=== PATIENT | female | born 1970 | race Caucasian/White ===

== ENCOUNTER 2017-08-16 14:33 | Emergency (ER) | payer OTHER ==
[~2017-08-16] VITALS: Ht 165.1 cm; Wt 85.9 kg
[~2017-08-16 14:33] MED LIST: ACET1TAB84 PO; IBUP-1050 PO
[2017-08-16 14:45] VITALS: TEMP 36.7; Ht 165.1 cm; Wt 85.9 kg
--- NOTE | 2017-08-16 15:47 | DIAGNOSTIC IMAGING REPORT ---
CHEST ONE VIEW PORTABLE CLINICAL HISTORY: Chest pain. COMPARISON STUDY: No previous studies for comparison. FINDINGS: Lung volumes are normal. No pneumothorax or pleural effusion is noted. No consolidation is identified. Cardiac size is normal. Mediastinal contours are normal. Mild nonspecific interstitial thickening is noted. IMPRESSION: 1. No consolidation. 2. Mild nonspecific interstitial thickening. Electronically signed by: Gonzalo Xavier M.D. 08/16/2017 3:45 PM Dictated Date/Time: 08/16/2017 3:44 PM
[2017-08-16 15:54] VITALS: O2SAT 100
[2017-08-16 16:01] LABS: BASO % 0.5 %; BASO ABS # 0.06 K/uL (0-0.2); EOS % 2.2 %; EOS ABS # 0.27 K/uL (0-0.5); HEMATOCRIT 38.2 % (37-47); IG# 0.02 K/uL (0.00-0.02); LYMPH % 25.1 %; LYMPH ABS # 3.08 K/uL (1.2-3.4); MEAN CELL VOLUME 89.7 fL (80-100); MEAN CORPUSCULAR HEMOGLOBIN 30.5 pg (25-34); MEAN PLATELET VOLUME 10.4 fL (7.4-10.4); MONO % 6.4 %; MONO ABS # 0.79 K/uL (0.11-0.59); NEUT % 65.6 %; NEUT ABS # 8.05 K/uL (1.4-6.5); PLATELET COUNT 233 K/uL (130-400); RED CELL DISTRIBUTION WIDTH CV 13.8 % (11.5-14.5); RED CELL DISTRIBUTION WIDTH SD 45.4 fL (36.4-46.3); WHITE BLOOD COUNT 12.27 K/uL (4.8-10.8)
[2017-08-16 16:10] LABS: PTT PATIENT 27.6 SECONDS (21.0-31.0)
[2017-08-16 16:18] LABS: ALBUMIN 3.9 gm/dl (3.4-5.0); ALT/SGPT 19 U/L (12-78); AST/SGOT 14 U/L (15-37); BLOOD UREA NITROGEN 14 mg/dl (7-18); CALCIUM 8.7 mg/dl (8.5-10.1); CARBON DIOXIDE 27 mmol/L (21-32); CREATININE 0.69 mg/dl (0.60-1.20); GLUCOSE 81 mg/dl (70-99); LIPASE 98 U/L (73-393); POTASSIUM 3.8 mmol/L (3.5-5.1); SODIUM 138 mmol/L (136-145)
[2017-08-16 16:23] LABS: ALKALINE PHOSPHATASE 62 U/L (45-117); CKMB 2.4 ng/ml (0.5-3.6); TOTAL PROTEIN 7.5 gm/dl (6.4-8.2)
[2017-08-16] MEDS ORDERED: VENL1CAP92 PO (16:29)
[2017-08-16 19:42] VITALS: BP 124/71; PULSE 62; O2SAT 98
--- NOTE | 2017-08-16 23:27 | EMERGENCY ROOM VISIT NOTE ---
History Report prepared by Barrett: Reshma Ambrocio Under the Supervision of: Dr. Bhavesh Zuñiga M.D. First contact with patient: 15:18 Chief Complaint: CHEST PAIN Stated Complaint: CHEST PAIN Nursing Triage Summary: Patient c/o intermittent chest pain for 3 days. Increased belching, denies SOB. History of Present Illness The patient is a 46 year old female who presents to the Emergency Room with complaints of intermittent left sided chest pain beginning 3 days ago. The patient reports she called her PCP who was unable to see her today so he referred her to come to the ED. She denies any radiation of pain. The patient describes her pain as a soreness. She rates her pain as a 5/10 at its worst. Presently, she rates her pain as a 3/10. She denies any modifying or worsening factors to her chest pain. The patient's most current episode of chest pain has lasted for about 9 hours. The patient reports increased belching. The patient reports a family history of cardiac stents and strokes. The patient has a history of tubal ligation and vein stripping. The patient is a smoker. Pt denies LOC, headache, fevers, chills, diaphoresis, visual changes, neck pain, tearing pain radiating to the back, personal history or family history of aneurysm or pulmonary embolism, uncontrolled hypertension, breathing difficulties, leg swelling, coagulation abnormalities, prolonged travel, recent surgery or immobilization, nausea, vomiting, abdominal pain, shortness of breath , melena, hematochezia, urinary symptoms, numbness, weakness, lymphadenopathy, rash, or other complaints. Source of History: patient Onset: 3 days ago Position: chest (left) Symptom Intensity: 3/10 Quality: other (soreness) Timing: intermittent Modifying Factors (Worsening): other (none) Modifying Factors (Relieving): other (none) Associated Symptoms: + chest pain, No fevers, No chills, No headache, No cough, No neck pain, No SOB, No nausea, No vomiting, No abdominal pain, No back pain, No diarrhea, No urinary symptoms, No weakness, No numbness Review of Systems See HPI for pertinent positives and negatives. A total of ten systems were reviewed and were otherwise negative. Past Medical & Surgical Medical Problems: (1) Deep vein stripping (2) Depression (3) Heart murmur Surgical Problems: (1) History of tubal ligation (2) S/P tubal ligation Family History FH: stroke Stent Social History Smoking Status: Current Every Day Smoker Marital Status: Housing Status: lives with significant other Occupation Status: employed Current/Historical Medications Scheduled Venlafaxine Hcl (Effexor Xr), 1 CAP PO BID Scheduled PRN Acetaminophen (Tylenol Arthritis Ext Rel), 2 TABS PO Q8H PRN for Pain Ibuprofen (Advil), 400 MG PO Q6 PRN for Pain Allergies Coded Allergies: Hydrocodone (Verified Adverse Reaction, Severe, NAUSEA & VOMITING, 08/16/17 ) Physical Exam Vital Signs Date Time Temp Pulse Resp B/P (MAP) Pulse Ox O2 Delivery O2 Flow Rate FiO2 08/16/17 19:42 62 20 124/71 98 08/16/17 18:43 60 20 127/75 96 Room Air 08/16/17 16:45 64 17 142/90 99 Room Air 08/16/17 16:13 69 08/16/17 15:54 100 Room Air 08/16/17 15:40 69 20 124/78 100 Room Air 08/16/17 14:45 36.7 80 16 148/82 99 Room Air 08/16/17 14:44 Room Air Physical Exam GENERAL: Awake, alert, well-appearing, in no distress HENT: Normocephalic, atraumatic. Oropharynx unremarkable. EYES: Normal conjunctiva. Sclera non-icteric. NECK: Supple. No nuchal rigidity. FROM. No masses. RESPIRATORY: Clear to auscultation. No wheezes. No rales. Normal respiratory effort. CARDIAC: Normal rate. Normal rhythm. No murmurs. No rubs. Extremities warm and well perfused. Pulses equal. No JVD. GI: Soft, non-distended. No tenderness to palpation. No rebound or guarding. No masses. RECTAL: Deferred. MUSCULOSKELETAL: Atraumatic. Chest examination reveals no tenderness. The back is symmetrical on inspection without obvious abnormality. There is no CVA tenderness to palpation. No joint edema. LOWER EXTREMITIES: Calves are equal size bilaterally and non-tender. No edema. No discoloration. NEURO: Normal sensorium. No sensory or motor deficits noted. SKIN: No rash or jaundice noted. Medical Decision & Procedures ER Provider Diagnostic Interpretation: Radiology results as stated below per my review and radiologist interpretation: CHEST ONE VIEW PORTABLE FINDINGS: Lung volumes are normal. No pneumothorax or pleural effusion is noted. No consolidation is identified. Cardiac size is normal. Mediastinal contours are normal. Mild nonspecific interstitial thickening is noted. IMPRESSION: 1. No consolidation. 2. Mild nonspecific interstitial thickening. Electronically signed by: Gonzalo Xavier M.D. Laboratory Results 08/16/17 15:40 Red Blood Count 4.26, Mean Corpuscular Volume 89.7, Mean Corpuscular Hemoglobin 30.5, Mean Corpuscular Hemoglobin Concent 34.0, Mean Platelet Volume 10.4, Neutrophils (%) (Auto) 65.6, Lymphocytes (%) (Auto) 25.1, Monocytes (%) (Auto) 6.4, Eosinophils (%) (Auto) 2.2, Basophils (%) (Auto) 0.5, Neutrophils # (Auto) 8.05, Lymphocytes # (Auto) 3.08, Monocytes # (Auto) 0.79, Eosinophils # (Auto) 0.27, Basophils # (Auto) 0.06 08/16/17 15:40 Test 08/16/17 15:40 08/16/17 15:46 08/16/17 17:39 White Blood Count 12.27 K/uL (4.8-10.8) Red Blood Count 4.26 M/uL (4.2-5.4) Hemoglobin 13.0 g/dL (12.0-16.0) Hematocrit 38.2 % (37-47) Mean Corpuscular Volume 89.7 fL (80-100) Mean Corpuscular Hemoglobin 30.5 pg (25-34) Mean Corpuscular Hemoglobin Concent 34.0 g/dl (32-36) Platelet Count 233 K/uL (130-400) Mean Platelet Volume 10.4 fL (7.4-10.4) Neutrophils (%) (Auto) 65.6 % Lymphocytes (%) (Auto) 25.1 % Monocytes (%) (Auto) 6.4 % Eosinophils (%) (Auto) 2.2 % Basophils (%) (Auto) 0.5 % Neutrophils # (Auto) 8.05 K/uL (1.4-6.5) Lymphocytes # (Auto) 3.08 K/uL (1.2-3.4) Monocytes # (Auto) 0.79 K/uL (0.11-0.59) Eosinophils # (Auto) 0.27 K/uL (0-0.5) Basophils # (Auto) 0.06 K/uL (0-0.2) RDW Standard Deviation 45.4 fL (36.4-46.3) RDW Coefficient of Variation 13.8 % (11.5-14.5) Immature Granulocyte % (Auto) 0.2 % Immature Granulocyte # (Auto) 0.02 K/uL (0.00-0.02) Prothrombin Time 10.1 SECONDS (9.0-12.0) Prothromb Time International Ratio 1.0 (0.9-1.1) Activated Partial Thromboplast Time 27.6 SECONDS (21.0-31.0) Partial Thromboplastin Ratio 1.1 Anion Gap 4.0 mmol/L (3-11) Est Creatinine Clear Calc Drug Dose 110.3 ml/min Estimated GFR () 121.0 Estimated GFR (Non- 104.4 BUN/Creatinine Ratio 20.3 (10-20) Calcium Level 8.7 mg/dl (8.5-10.1) Total Bilirubin 0.2 mg/dl (0.2-1) Direct Bilirubin < 0.1 mg/dl (0-0.2) Aspartate Amino Transf (AST/SGOT) 14 U/L (15-37) Alanine Aminotransferase (ALT/SGPT) 19 U/L (12-78) Alkaline Phosphatase 62 U/L (45-117) Total Creatine Kinase 170 U/L (26-192) Creatine Kinase MB 2.4 ng/ml (0.5-3.6) Creatine Kinase MB Ratio 1.4 (0-3.0) Total Protein 7.5 gm/dl (6.4-8.2) Albumin 3.9 gm/dl (3.4-5.0) Lipase 98 U/L (73-393) Bedside D-Dimer 353 ng/mlFEU (0-450) Bedside Troponin I < 0.030 ng/ml (0-0.045) Laboratory results reviewed by me ECG Per My Interpretation Indication: chest pain Rate (beats per minute): 73 Rhythm: normal sinus Findings: no acute ischemic change, no ectopy, other (normal intervals) Change: REPEAT EKG: normal sinus 62 bpm, no ischemia, no ectopy, normal intervals, no change from previous ED Course 1522: The patient was evaluated in room C10. A complete history and physical exam was performed. 192: I updated the patient on her test results. She is feeling better. Medical Decision Triage Nursing notes reviewed and agree them. The patient's history was concerning for chest pain. Differential diagnosis: Etiologies such as cardiac ischemia, aortic dissection, pulmonary embolism, pneumonia, pneumothorax, musculoskeletal, infections, pericarditis, myocarditis , esophageal rupture, gastrointestinal, as well as others were entertained. Physical examination: As above. ER treatment provided: No medication given. Patient declined GI medication. On reassessment the patient felt better. Diagnostic interpretation by me: The electrocardiogram was negative for pathologic change 2. The labs revealed slight leukocytosis on CBC. Record review showed that she had 2 prior CBCs. One showed 10.4 and 17 for her white blood cell count. Cardiac markers negative 2. LFTs and lipase negative. A d-dimer was performed and it was negative. Based on Wells criteria and a negative dimer no further imaging for PE was performed. Imaging studies: Chest x-ray as above Patient has nonspecific chest pain. She has had it all day today. She had 2 negative troponins. This is nonexertional. It is not reproducible. She questions whether that this may be GI related as she had a lot of belching and burping. She declined any GI medications here. I discussed close outpatient follow-up and she feels comfortable. If she worsens in any way she will be back. She is low risk for chest pain and is an appropriate candidate for outpatient follow-up. I gave my usual and customary discussion regarding this issue. By the evaluation outlined above emergent etiologies such as cardiac ischemia, aortic dissection, pulmonary embolism, pneumonia, pneumothorax, infections, pericarditis, myocarditis, gastrointestinal, as well as others were deemed relatively unlikely. The patient was informed about the findings as listed above. All questions were answered and she was pleased with the treatment. Return instructions were outlined and the patient was discharged in stable condition. Referral: The patient was referred back to her primary care physician for follow-up in 2 to 3 days for a recheck of the current condition. Medication Reconcilliation Current Medication List: was personally reviewed by me Blood Pressure Screening Patient's blood pressure: Normal blood pressure Impression Primary Impression: Left sided chest pain Scribe Attestation The scribe's documentation has been prepared under my direction and personally reviewed by me in its entirety. I confirm that the note above accurately reflects all work, treatment, procedures, and medical decision making performed by me. Departure Information Dispostion Home / Self-Care Referrals Bakari Sarabia M.D.(BERTIN) (PCP) Forms Call Back Authorization, HOME CARE DOCUMENTATION FORM, IMPORTANT VISIT INFORMATION Patient Instructions [facility] Additional Instructions CHEST PAIN INSTRUCTIONS: Ibuprofen(Motrin, Advil) may be used for fever or pain. Use 600mg every six hours as needed. Take with food. Avoid using more than 2400mg in a 24 hour period. Do not use 2400mg per day for more than three consecutive days without physician direction. Prolonged inappropriate use can lead to stomach upset or ulcers. (AND/OR) Acetaminophen(Tylenol) may be used for fever or pain. Use 1000mg every six hours as needed. Avoid using more than 4000mg in a 24 hour period. You can try a an acid such as Maalox or Tums. Also [id number] Zantac twice daily is reasonable. Rest and drink plenty of fluids as tolerated. Continue current medications. Avoid strenuous activities and anything that worsens your pain. Resume normal activities once your symptoms resolve. Return to the ER immediately for worsening or persistent chest pain, abdominal pain, vomiting, fevers, chest pains, difficulty breathing, worsening of your condition, or as needed. Follow up with your primary physician in 2-3 days for a recheck of your current condition.
== END 2017-08-16 19:43 | disposition home or self-care (01) ==
LOC: C.EDB 14:34 → C.EDC 19:43
DX: R07.89 Other chest pain (principal); R01.1 Cardiac murmur, unspecified; F17.200 Nicotine dependence, unspecified, uncomplicated; Z82.49 Family history of ischemic heart disease and other diseases of the circulatory system; Z88.6 Allergy status to analgesic agent

== ENCOUNTER 2019-06-15 06:19 | Observation (INO) ==
--- NOTE | 2019-05-29 15:38 | PAT Medication Instructions ---
Medication Instructions Date of Service May 29, 2019 Home Medications atorvastatin 10 mg PO QAM omeprazole 20 mg PO QAM ropinirole 0.5 mg PO HS venlafaxine 37.5 mg PO QAM STOP taking 24 hours before surgery ropinirole 0.5 mg PO HS Take morning of surgery With a small sip of water, OTHERWISE NOTHING TO EAT OR DRINK AFTER MIDNIGHT: atorvastatin 10 mg PO QAM omeprazole 20 mg PO QAM venlafaxine 37.5 mg PO QAM Other Notes If you have any questions please call us at [phone] or [phone] or [phone] or [phone]
--- NOTE | 2019-05-30 14:53 | Anesthesiology Consultation ---
Date of Service May 30, 2019 Assessment & Plan (1) Encounter for pre-operative examination: Chart Review Chart Review: Acceptable Risk for Surgery and Patient seen in Pre Admission Testing Teaching & Discussion Pre-Anesthesia Teaching/Discussion Notes: Instructed NPO after midnight before surgery,except medications with 15 cc of water. Medication instructions provided according to the PAT guidelines. History Surgery Operation Date: 06/15/19 09:40 Proposed Procedures p Total Laparoscopic Hysterectomy, Bilateral Salpingectomy and Cystoscopy - Alycia Khoury Height/Weight Height: 5 ft 5 in Weight: 90.4 kg Allergies Allergy/AdvReac Type Severity Reaction Status Date / Time hydrocodone AdvReac Severe NAUSEA & Verified 05/22/19 11:54 VOMITING Medications Home Medications Medication Instructions Recorded Confirmed Last Taken atorvastatin 10 mg PO QAM 05/22/19 05/22/19 Unknown omeprazole 20 mg PO QAM 05/22/19 05/22/19 Unknown ropinirole 0.5 mg PO HS 05/22/19 05/22/19 Unknown venlafaxine 37.5 mg PO QAM 05/22/19 05/22/19 Unknown Past Medical History Medical History (Updated 05/31/19 @ 08:41 by Sandra Burgos PA-C) Abnormal uterine bleeding GERD (gastroesophageal reflux disease) Well controlled and stable with meds Hx of cardiac murmur Childhood- has since resolved Hyperlipidemia Osteoarthritis back, knees Restless leg syndrome Mildly controlled with meds Exercise / Class Metabolic Activity II 4-5 Yardwork/Stairs/Walk up hill (one flight of stairs - no chest pain or SOB ) Past Surgical History Surgical History (Updated 05/30/19 @ 13:52 by Latrice Burgos) Hx of dilation and curettage D&E (FOR MISCARRIAGE) S/P tubal ligation (Resolved) Varicose veins of both lower extremities SURGERY X 2 Past Anesthesia History No Hx of Anesthesia Complications and No Family Hx of Anesthesia Complications History of PONV No Hx of PONV and No Hx of Motion Sickness Social History Smoking Status: Current every day smoker tobacco type: cigarettes Smoking cigarettes per day: 1PPD Do You Dip or Chew Tobacco: No Hx Alcohol Use: Yes alcohol intake frequency: holidays/special occasions only Hx Substance Use: No substance use type: does not use Review of Systems +Reflux - controlled +Snoring- no apnea Patient denies chest pain, shortness of breath, dyspnea on exertion, cough, wheezing, palpitations. No hx of seizures, stroke, [place]. No hx of blood clots or blood transfusions No recent steroid use Physical Exam Vital Signs VITALS BP 125/72 P 60 TEMP 98.4 SP02 97% RESP 16 Constitutional no acute distress ENMT Mouth: no TMJ clicking Thyromental Distance: > or= 3.5 Finger Breadths (4.0) Mallampati Class: III Several missing molars Neck neck extension not limited Respiratory normal respiratory effort; no respiratory distress Auscultation: lungs clear to auscultation bilaterally; no wheezes Cardiovascular Rate/Rhythm: regular rate and regular rhythm Heart Sounds: no murmur Vessels: no carotid bruit Musculoskeletal Spine: normal cervical ROM and no pain with cervical ROM Neurologic moves all extremities Psychiatric Orientation: alert Testing Laboratory Results 05/30/19 14:50 05/30/19 14:50 Blood Type A Positive 05/30/19 14:50 Antibody Screen NEGATIVE 05/30/19 14:50 Chronic mild leukocytosis - stable
[2019-05-30 16:14] LABS: BUN Creatinine Ratio 28.6 (10-20); Calcium 9.2 mg/dl (8.5-10.1); Creatinine Clr Calc Pharmacy 99.2 ml/min; Est GFR (African American) 105.8; Est GFR (Non-African American) 91.3; Potassium 4.2 mmol/L (3.5-5.1)
[2019-05-30 16:15] LABS: Basophils # (auto) 0.04 K/uL (0-0.2); Basophils % (auto) 0.3 %; Eosinophils # (auto) 0.27 K/uL (0-0.5); Eosinophils % (auto) 2.2 %; Hematocrit (blood only) 37.2 % (37-47); Hemoglobin 12.3 g/dL (12.0-16.0); Immature Granulocytes # (auto) 0.03 K/uL (0.00-0.02); Immature Granulocytes % (auto) 0.2 %; Mean Corpuscular Hemoglobin 30.1 pg (25-34); Mean Corpuscular Hgb Conc 33.1 g/dL (32-36); Mean Corpuscular Volume 91.2 fL (80-100); Monocytes # (auto) 0.74 K/uL (0.11-0.59); Monocytes % (auto) 6.1 %; Neutrophils # (auto) 7.47 K/uL (1.4-6.5); Neutrophils % (auto) 62.2 %; Platelet Count 286 K/uL (130-400); RDW Coefficient of Variation 13.8 % (11.5-14.5); RDW Standard Deviation 45.7 fL (36.4-46.3); Red Blood Count 4.08 M/uL (4.2-5.4); White Blood Count 12.05 K/uL (4.8-10.8)
[~2019-06-15 06:19] MED LIST changes: -ACET1TAB84 PO; +CEFAZOLIN 2000MG 2,000 MG/15 ML SYR IV SCH; -IBUP-1050 PO; +LACTATED RINGER'S 1,000 ML IV SCH; +LR 15ML/HR IV SCH
[2019-06-15] MEDS ORDERED: PROPOFOL IV EMULSION 10 MG/ML 20 ML VIAL IV ONE (07:20)
[2019-06-15] MEDS ORDERED: LIDOCAINE HCL 2% 2 ML VIAL/AMP(20MG/ML) INFIL ONE (07:20)
[2019-06-15] MEDS ORDERED: ROCURONIUM BROMID 50MG/5ML SYR ONE (07:20)
--- NOTE | 2019-06-15 07:20 | History & Physical Bridge Note ---
Date of Service June 15, 2019 History & Physical Bridge Note I have examined the patient, reviewed the History & Physical and in the interval since the performance of the History & Physical I have noted the following changes of clinical significance: no changes noted
[2019-06-15] MEDS ORDERED: MIDAZOLAM HCL 1 MG/ML 2ML VIAL ONE (07:21)
[2019-06-15] MEDS ORDERED: fentaNYL citrate 100 MCG/2 ML VIAL ONE ×2 (07:21→08:47)
[2019-06-15 07:26] LABS: Pregnancy Test, Serum Negative (Negative)
[2019-06-15] MEDS ORDERED: SIMETHICONE 80 MG CHEW PO PRN (07:52)
[2019-06-15] MEDS ORDERED: OXYCODONE/ACETAMINOPHEN 5mg/325mg TAB PO PRN (07:52)
[2019-06-15] MEDS ORDERED: PROMETHAZINE HCL 12.5 MG in SODIUM CHLORIDE 0.9% 50 ML IV PRN ×2 (07:52→08:26)
[2019-06-15] MEDS ORDERED: ONDANSETRON INJ 2 MG/ML 2 ML VIAL IV PRN ×2 (07:52→08:26)
[2019-06-15] MEDS ORDERED: KETOROLAC 30 MG/ML VIAL IV PRN (07:52)
[2019-06-15] MEDS ORDERED: BUPIVACAINE 0.5 % 5 MG/1 ML MPF 30ML VIAL ONE (08:20)
[2019-06-15] MEDS ORDERED: ATROPINE SULFATE 0.1 MG/ML 10ML SYR IV PRN (08:26)
[2019-06-15] MEDS ORDERED: FLUMAZENIL 0.1 MG/1 ML 10 ML VIAL IV PRN (08:26)
[2019-06-15] MEDS ORDERED: NALOXONE HCL 0.4 MG/1 ML VIAL/CARP IV PRN (08:26)
[2019-06-15] MEDS ORDERED: ePHEDrine sulfate 50 MG/ML AMP IV PRN (08:26)
[2019-06-15] MEDS ORDERED: LABETALOL HCL IV 5 MG/ML 20ML IV PRN (08:26)
[2019-06-15] MEDS ORDERED: ESMOLOL HCL INJ 10 MG/ML 10ML VIAL IV ONE (08:47)
[2019-06-15] MEDS ORDERED: ONDANSETRON INJ 2 MG/ML 2 ML VIAL ONE (08:52)
[2019-06-15] MEDS ORDERED: DEXAMETHASONE SOD INJ 4 MG/ML VIAL ONE (08:52)
[2019-06-15] MEDS ORDERED: NEOSTIGMINE METHYLSULFATE 5 MG/5 ML SYR ONE (09:20)
[2019-06-15] MEDS ORDERED: GLYCOPYRROLATE 0.2 MG/ML VIAL ONE (09:20)
[2019-06-15] MEDS ORDERED: TISSEEL FIBRIN SEALANT 10ML TOP ONE (09:40)
--- NOTE | 2019-06-15 10:13 | Post Operative Brief Note ---
Immediate Post Op Note v1 Date of Surgery June 15, 2019 Pre & Post Diagnosis Operation Date: 06/15/19 07:50 Pre-Op Diagnosis: Abnormal Uterine Bleeding Post-Op Diagnosis: Abnormal Uterine Bleeding I identified the patient and participated in the time-out.: Yes Procedure Operation Date: 06/15/19 07:50 Actual Procedures p Total Laparoscopic Hysterectomy, Bilateral Salpingectomy, Cystoscopy(Not Applicable) - Alycia Khoury Surgeon Alycia Khoury Rotoprinter Pablito Doe MD Estimated Blood Loss 20 Findings Consistent with Post-Op Diagnosis Drains Downing Catheter (Inserted for procedure by surgeon, output to be monitored by anesthesia.)
--- NOTE | 2019-06-15 10:43 | Operative Report ---
Post Operative Report Pre & Post Diagnosis Operation Date: 06/15/19 07:50 Pre-Op Diagnosis: Abnormal Uterine Bleeding Post-Op Diagnosis: Abnormal Uterine Bleeding I identified the patient and participated in the time-out.: Yes Procedure Operation Date: 06/15/19 07:50 Actual Procedures p Total Laparoscopic Hysterectomy, Bilateral Salpingectomy, Cystoscopy(Not Applicable) - Alycia Khoury Surgeon Alycia Khoury Drop Wirer Pablito Doe MD Estimated Blood Loss 20 Findings See Below 1. 9 cm anteverted uterus 2. Normal appearing ovaries bilaterally 3. Normal appearing portions of fallopian tubes (previous tubal ligation) 4. Anterior and posterior cul-de-sac free of disease 5. Normal appearing liver edge 6. Appendix not visualized 7. On cystoscopy, normal appearing bladder dome. Bladder dome was free of lesions or suture 8. Brisk bilateral efflux of urine by ureteral orifices Fluids See Anesthesia Report Specimens Uterus, cervix, portions of bilateral fallopian tubes Drains Silva catheter removed prior to the end of the procedure Anesthesia Type General Complications none Disposition Disposition: Recovery Room Indications 48 yo with abnormal uterine bleeding desiring definitive surgical management via hysterectomy. Description of Procedure Under GA in the dorsal lithotomy position, the patient was prepped and draped in the usual sterile fashion. Beginning at the vagina, a silva catheter was inserted under sterile conditions and left in situ for the remainder of the case. A weighted speculum was then placed in the vagina and with the help of a right angle retractor the cervix was visualized and grasped anteriorly with a single tooth tenaculum. The uterus was sounded to 9 cm with a uterine sound. The cervical os was dilated and an Advincula uterine manipulator with a metal cup was inserted. The weighted speculum was then removed. Attention was then turned to the abdomen. 0.5% marcaine solution was used for infiltration of all port sites. Beginning in the subumbilical area, the skin was first infiltrated with ~ 2 cc of the marcaine solution, then a 5 mm incision was made through the skin with a #11 blade. Direct entry with a 5 mm trocar, sleeve, and laparoscope was made into the peritoneal cavity. The opening pressure was < 8 mmHg. The peritoneal cavity was insufflated with CO2 gas to a maximum pressure of 20 mmHg. Examination of the peritoneal cavity revealed no signs of injury from entry and normal anatomic al structures. The patient was then placed in steep Trendelenburg and three more 5 mm trocars were placed, one on the right and two on the left, in the standard technique, taking care to avoid the epigastric vessels. All trocars were placed under direct visualization with no inadvertent damage to underlying structures. The uterus was upheld from below and revealed a normal uterus and normal portio ns of fallopian tubes and normal ovaries. Beginning on the left side and working distally along the length of the fallopian tube, the mesosalpinx was exposed by lifting the tube up towards the anterior abdominal wall. The mesosalpinx was then sequentially, clamped, ligated, and cut using the AISHWARYA Harmonic working alongside the length of the tube and towards the cornua. Once the level of the cornua was reached the tube was ligated and cut. Attention was then turned to the other side. The same process was repeated on the right, sequentially clamping, ligating, and cutting the mesosalpinx being sure to not injure the adjacent ovarian tissue or other surrounding structures. The round ligament was then ligated and cut. Following this, the anterior leaf of the broad ligament was then taken down on the right side, dissecting down towards the peritoneal reflection at the base of the bladder and adjacent to the cervix. The same process was then repeated on the left side such that both sides met and the anterior leaflet had been appropriately skeletonized. Once the bladder was appropriately dissected free from the lower anterior uterine segment and the tissues skeletonized, the uterine arteries were bilaterally clamped and ligated. Pedicles were checked and hemostatic. At the level of the metal cup of the uterine manipulator, the vaginal vault was incised circumferentially with the AISHWARYA Harmonic. The uterus, cervix, and portions of bilateral fallopian tubes were delivered through the vagina and sent to pathology. A vaginal occluder was then placed into the vagina to form a pneumati c seal and all the pedicles as well as the cuff edges were examined. The vaginal vault was then closed with a V-Loc barbed stitch being sure to avoid the bladder lateral pedicles. Following vault closure, an inspection of all areas was made to ensure hemostasis. Tisseal was then applied along the adnexal regions and the vaginal cuff. Hemostasis was again appreciated. All ports were removed under d irect visualization and hemostasis noted. All the incision sites were then closed with 4-0 monocryl sutures in a subcuticular fashion and dermabond. Attention was then returned to the vagina in which the vaginal occluder and silva catheter were removed. Cystoscopy was then performed without difficulty. Normal appearing bladder dome which was free of lesions or suture. Brisk bilateral efflux of urine by ureteral orifices was visualized. The bladder was drained and the cystoscope removed without incident. At the end of the procedure, all sponges, instruments, and sharps were counted and correct. Estimated blood loss was 20 ml. The patient was taken to recovery in stable condition. I attest to the content of the Intraoperative Record and any orders documented therein. Any exceptions are noted below.
[2019-06-15] MEDS: fentaNYL citrate 100 MCG/2 ML VIAL IV PRN ×2 (10:44→10:53)
--- NOTE | 2019-06-15 11:15 | Anesthesiology Progress Note ---
Date of Service June 15, 2019 Anesthesia Post Procedure Vital Signs Vital Signs: Temp Pulse Pulse Resp BP BP Pulse Ox 06/15/19 11:10 36.5 C 70 18 116/56 L 97 06/15/19 11:00 60 18 115/59 L 94 06/15/19 10:50 63 16 112/48 L 98 06/15/19 10:40 61 16 124/62 98 06/15/19 10:30 66 15 131/56 L 98 06/15/19 10:24 36.1 C L 67 15 125/56 L 100 06/15/19 06:42 36.7 C 72 18 146/67 H 99 Pain Intensity Lower Abdomen: Pain Intensity: 3 Transfer of Care Handoff Completed per policy Notes Mental Status: alert / awake / arousable Patient Amnestic to Procedure: Yes Nausea / Vomiting: adequately controlled Pain: adequately controlled Airway Patency, RR, SpO2: stable & adequate BP & HR: stable & adequate Hydration State: stable & adequate Anesthetic Complications: no major complications apparent
[2019-06-15] MEDS ORDERED: INFLUENZA ADMINISTRATION CHARGE ONE (11:53)
[2019-06-15] MEDS ORDERED: INFLUENZA VIRUS QUAD VACCINE 0.5 ML SYR IM ONE (11:53)
[2019-06-15] MEDS: ACETAMINOPHEN 325 MG TAB PO SCH ×3 (13:39→23:52)
[2019-06-15] MEDS: DOCUSATE SODIUM 100 MG CAP PO SCH ×2 (13:39→21:25)
[2019-06-15] MEDS: IBUPROFEN 600 MG TAB PO SCH ×3 (16:10→23:52)
--- NOTE | 2019-06-15 21:56 | Electrocardiogram Report ---
Test Reason : Blood Pressure : / mmHG Vent. Rate : 063 BPM Atrial Rate : 063 BPM P-R Int : 144 ms QRS Dur : 078 ms QT Int : 404 ms P-R-T Axes : 024 096 051 degrees QTc Int : 413 ms Normal sinus rhythm Rightward axis Borderline ECG When compared with ECG of 16-AUG-2017 17:26, No significant change was found Confirmed by Duc Hernandez ([id number]) on 06/15/2019 9:56:38 PM Referred By: Alycia Khoury Confirmed By:Duc Hernandez
[2019-06-16] MEDS: IBUPROFEN 600 MG TAB PO SCH ×2 (03:07→06:37)
[2019-06-16] MEDS: ACETAMINOPHEN 325 MG TAB PO SCH (05:32)
[2019-06-16] MEDS: DOCUSATE SODIUM 100 MG CAP PO SCH (10:31)
--- NOTE | 2019-06-16 10:59 | Obstetrical Progress Note ---
Date of Service June 16, 2019 Assessment & Plan Admission and Anticipated Discharge Date Admission Date: June 15, 2019 Physical Exam Physical Exam: abdomen soft and non tender passing flatus no calf tenderness ambulating well vaginal bleeding scant hgb 12.3 Results & Data ([facility]) Vital Signs (Past 12 Hours) Vital Signs Temp Pulse Resp BP Pulse Ox 06/16/19 07:55 36.6 C 67 18 110/70 97 06/15/19 22:58 36.8 C 73 18 119/66 97
== END 2019-06-16 11:31 | disposition home or self-care (01) ==
LOC: 3W 06:19 → ASU 06:19

== ENCOUNTER 2024-12-21 05:06 | Observation (INO) ==
--- NOTE | 2024-12-21 05:22 | Emergency Department Note ---
Impression & Plan Left facial numbness, Weakness on left side of face ED Provider Note Name: MILKA MENDEZ Age: 54 Sex: Female Arrives Via: Walk-In Informant: Patient ED Provider: Beto Leung MD Chief Complaint: Facial paresthesia Impression: As per impression above Medical Decision Making: Pleasant 54-year-old female arrives for evaluation of left side of facial paresthesia. Patient did awake with unusual symptoms around 2 or 3 AM and thus last known well was probably around when she went to bed 10 PM. On arrival patient noted to have some weakness of the left face along with questionable slurred speech. Stroke alert initiated and emergent CT imaging was obtained. Discussed with stroke neurologist over the phone who did evaluate the patient via front desk monitor and agrees that TNK not indicated at this time. Symptoms do seem somewhat consistent with a developing Garvin's palsy but the slurred speech in the setting of patient stating she has never had any slurred speech issues and is a bit concerning and then adding in her past medical history of tobacco use, father with stroke at 51, hypertension, dyslipidemia further workup is likely indicated. Triage/Nursing Notes reviewed by Me Differential:stroke, dissection, migraine, ich, infection, garvin's palsy, amongst others. Vital Signs: reviewed and remarkable for no significant abnormalities Labs:ED labs Reviewed by me and remarkable for no significant abnormalities Imaging:CT of the head without contrast as per my informal interpretation reveals no intracranial hemorrhage or mass effect. CT angiography of the head and cervical spine revealed no acute occlusion per radiologist. EKG:As per my interpretation. Indication strokelike symptoms. Normal sinus rhythm at 71 bpm QTc of 467. There is no ectopy. T waves are somewhat inverted which is slightly worsened from August 12, 2022 EKG. No clear evidence of ischemia though. Cardiac/Tele Monitoring: Cardiac Monitoring: An Order was placed for continuous cardiac monitoring. The monitor shows a rate of 70 with a normal sinus rhythm. Consults: Emergent phone consultation with Monica telemetry neurologist. After discussion and brief evaluation of patient he agrees that patient is not a TNKase candidate. Dr Satya Kendrick Hospitalist Plan: Disposition:Hospitalization. Condition: Good History of Present Illness: 54-year-old female arrives for evaluation of left facial paresthesias. She notes she woke around somewhere between 2 and 3 AM this morning and stated she felt like there was something wrong with her head. This was not a specific pain but rather some unusual sensation. Over the course of the next 2 hours she started developing left-sided facial numbness and paresthesias. Due to worsening symptoms she arrives to the ER for further evaluation via private vehicle. Patient denies any weakness in her arms or legs. She denies any severe headache but does note that her head just feels off. Patient admits regular tobacco use. She has a history of hypertension and dyslipidemia. She also notes that she has a father who had a stroke at the age of 51. Patient does not have any history of CVA or CAD that she is aware of. Past Medical History: Dyslipidemia, hypertension, allergies, GERD, anxiety/depression Home Medications:See Below Allergies:hydrocodone Vitals:Blood Pressure: 159/93, Pulse 88, RR 16, T 36.2C, O2 97% on RA Physical Exam: GENERAL: Patient is anxious appearing and in mild distress. Crying in room RESPIRATORY: No dyspnea. Clear to auscultation and equal bilaterally. CARDIOVASCULAR: Regular rate and rhythm.No murmur appreciated. GASTROINTESTINAL: Abdomen soft, non-tender, no peritonitis. BACK: No midline tenderness, no CVA tenderness EXTREMITIES: Normal motion all extremities, no cyanosis, no edema. NEUROLOGIC: Alert and oriented. Patient has a mild left lower facial droop and a moderate left upper facial weakness. She has a slight slurred speech. Otherwise neurologically intact with 5 out of 5 strength all extremities no other cranial nerve deficits nor other neurodeficits appreciated. SKIN: No rash, no jaundice, no diaphoresis. PSYCH: Appropriate GCS: 15 ED Course: Times/Reassessments: Patient stable though continues to have some weakness to left side of face and facial paresthesia. Beto Lueng MD Past Med/Surg History Problem List Weakness on left side of face (Acute) Left facial numbness (Acute) Abnormal uterine bleeding Encounter for pre-operative examination History of tubal ligation Medical History Abnormal uterine bleeding GERD (gastroesophageal reflux disease) Well controlled and stable with meds Hx of cardiac murmur Childhood- has since resolved Hyperlipidemia Osteoarthritis back, knees Restless leg syndrome Mildly controlled with meds Surgical History Hx of dilation and curettage D&E (FOR MISCARRIAGE) S/P tubal ligation Varicose veins of both lower extremities SURGERY X 2 Family History Other No significant family history Social History Smoking Status: Current every day smoker Tobacco Type: Cigarettes Cigarettes Per Day: 1PPD; Second Hand Exposure: No; Do You Dip or Chew Tobacco: No; Hx Alcohol Use: No Hx Substance Use: No Preferred Language: Greek Communication Ability: Effective Visual Impairment: Partially Limited Hearing Ability: Normal [employer]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 Beliefs That Will Affect Care: None Current Living Situation: Alone Feels Safe at Home: Yes Assistive Devices: Glasses Allergies Allergies Allergy/AdvReac Type Severity Reaction Status Date / Time hydrocodone AdvReac Severe NAUSEA & Verified 09/28/24 22:54 VOMITING Home Meds Home Medications Medication Instructions Recorded Confirmed omeprazole 20 mg capsule,delayed 20 mg PO DAILYBB 05/22/19 12/21/24 release atorvastatin 40 mg tablet 40 mg PO DAILY 09/28/24 12/21/24 celecoxib 200 mg capsule 400 mg PO DAILY 09/28/24 12/21/24 cetirizine 10 mg tablet (Zyrtec) 10 mg PO DAILY 09/28/24 12/21/24 oxybutynin chloride 5 mg 0 mg PO HS 09/28/24 12/21/24 tablet,extended release 24 hr venlafaxine 150 mg 150 mg PO DAILY 09/28/24 12/21/24 capsule,extended release 24 hr Previous Rx's Medication Instructions Recorded doxycycline hyclate 100 mg tablet 100 mg PO BID 10 days #20 tabs 12/21/24 Results & Data (ED) Vital Signs Vital Signs - 24 hr 12/21/24 05:07 12/21/24 05:41 12/21/24 05:47 Temperature 36.2 C L Temperature Source Temporal Artery Scan Pulse Rate 88 81 Pulse Rate [Right Finger] 74 Pulse Rhythm [Right Finger] Regular Respiratory Rate 16 16 Respiratory Effort / Characteristics Non-Labored Spontaneous Respiratory Depth Normal Normal Blood Pressure 159/93 H Blood Pressure [Left Arm] 181/70 H Blood Pressure Mean 115 Blood Pressure Mean [Left Arm] 107 Blood Pressure Position Sitting Pulse Oximetry 97 96 Oxygen Delivery Method Room Air Room Air Sepsis Recent Fever Within 48 Hours No Sepsis New/Unexplained Change in Mental Status N/A Sepsis Action Taken by Nursing No Action Required 12/21/24 05:49 12/21/24 05:51 12/21/24 06:06 Temperature Temperature Source Pulse Rate Pulse Rate [Right Finger] 73 68 68 Pulse Rhythm [Right Finger] Regular Regular Respiratory Rate 16 16 16 Respiratory Effort / Characteristics Respiratory Depth Normal Normal Blood Pressure Blood Pressure [Left Arm] 181/70 H 168/90 H 149/104 H Blood Pressure Mean Blood Pressure Mean [Left Arm] 107 116 119 Blood Pressure Position Pulse Oximetry 96 98 96 Oxygen Delivery Method Room Air Room Air Room Air Sepsis Recent Fever Within 48 Hours Sepsis New/Unexplained Change in Mental Status Sepsis Action Taken by Nursing 12/21/24 06:21 12/21/24 06:30 12/21/24 06:36 Temperature Temperature Source Pulse Rate Pulse Rate [Right Finger] 68 67 68 Pulse Rhythm [Right Finger] Regular Regular Regular Respiratory Rate 16 16 16 Respiratory Effort / Characteristics Non-Labored Non-Labored Respiratory Depth Normal Normal Normal Blood Pressure Blood Pressure [Left Arm] 153/97 H 148/76 H 148/76 H Blood Pressure Mean Blood Pressure Mean [Left Arm] 115 100 100 Blood Pressure Position Pulse Oximetry 97 97 97 Oxygen Delivery Method Room Air Room Air Room Air Sepsis Recent Fever Within 48 Hours Sepsis New/Unexplained Change in Mental Status Sepsis Action Taken by Nursing 12/21/24 06:51 Temperature Temperature Source Pulse Rate Pulse Rate [Right Finger] 70 Pulse Rhythm [Right Finger] Respiratory Rate 16 Respiratory Effort / Characteristics Respiratory Depth Normal Blood Pressure Blood Pressure [Left Arm] 147/90 H Blood Pressure Mean Blood Pressure Mean [Left Arm] 109 Blood Pressure Position Pulse Oximetry 97 Oxygen Delivery Method Room Air Sepsis Recent Fever Within 48 Hours Sepsis New/Unexplained Change in Mental Status Sepsis Action Taken by Nursing Laboratory Data 12/21/24 05:41 12/21/24 05:41 Lab Results 12/21/24 12/21/24 Range/Units 05:30 05:41 WBC 9.53 (4.8-10.8) K/ul RBC 4.67 (4.20-5.40) M/uL Hgb 14.0 (12.0-16.0) g/dl POC Hgb 15.6 (12.0-16.0) g/dl Hct 41.6 (37.0-47.0) % POC Hct 46 (37-47) % MCV 89.1 (80.0-100.0) fL MCH 30.0 (25.0-34.0) pg MCHC 33.7 (32.0-36.0) g/dL RDW Std Deviation 42.2 (36.4-46.3) fL RDW Coeff of Jacobo 12.9 (11.5-14.5) % Plt Count 200 (130-400) K/uL MPV 10.9 (9.4-12.4) fL Immature Gran % (Auto) 0.2 % Neut % (Auto) 53.2 % Lymph % (Auto) 34.5 % Knox % (Auto) 8.1 % Eos % (Auto) 3.3 % Baso % (Auto) 0.7 % Neut # (Auto) 5.07 (1.40-6.50) K/uL Lymph # (Auto) 3.29 (1.20-3.40) K/uL Knox # (Auto) 0.77 H (0.11-0.59) K/uL Eos # (Auto) 0.31 (0.00-0.50) K/uL Baso # (Auto) 0.07 (0.00-0.20) K/uL Immature Gran # (Auto) 0.02 (0.01-0.20) K/uL PT 11.1 (9.0-12.0) Seconds INR 1.0 (0.9-1.1) APTT 28 (21-31) Seconds PTT Ratio 1.0 POC Sodium 139 (135-144) mmol/L Sodium 136 (136-145) mmol/L POC Potassium 4.8 (3.3-5.0) mmol/L Potassium 3.7 (3.5-5.1) mmol/L POC Chloride 105 (101-112) mmol/L Chloride 105 (98-107) mmol/L Carbon Dioxide 27 (21-32) mmol/L POC Total CO2 26 (24-31) mmol/L Anion Gap 4 (3-11) POC Anion Gap 14.0 L (16-25) mmol/L POC BUN 28 H (7-18) mg/dl BUN 21 (6-23) mg/dl Creatinine 0.70 (0.6-1.2) mg/dl POC Creatinine 0.7 (0.6-1.3) mg/dl Est Cr Clr Drug Dosing 112.1 ml/min eGFR 102.71 BUN/Creatinine Ratio 30.0 H (10-20) Glucose 126 H (70-99(Fasting)) mg/dl POC Glucose (other) 123 H (70-99) mg/dl Estimat Average Glucose 134 mg/dl Hemoglobin A1c 6.3 H (4.5-5.6) % Calcium 9.3 (8.6-10.3) mg/dl POC Ioniz Calcium Samantha 1.20 (1.12-1.32) mmol/l Phosphorus 2.8 (2.5-4.9) mg/dl Magnesium 1.8 (1.7-2.4) mg/dl Total Bilirubin 0.4 (0.2-1.0) mg/dl AST 18 (13-39) U/L ALT 22 (7-52) U/L Alkaline Phosphatase 61 (34-104) U/L Troponin I High Sens 7.0 (0-14) pg/ml Total Protein 6.4 (6.0-8.3) gm/dl Albumin 3.7 (3.4-5.0) gm/dl Globulin 2.7 (2.5-4.0) gm/dl Albumin/Globulin Ratio 1.4 (0.9-2) Triglycerides 185 H (0-150) mg/dl Cholesterol 112 (0-200) mg/dl LDL Cholesterol, Calc 45 mg/dl VLDL Cholesterol, Calc 37 H (0-30) mg/dl HDL Cholesterol 30 mg/dl Cholesterol/HDL Ratio 3.7 (0-5) TSH 2.075 (0.300-4.500) uIu/ml Lyme Disease Screen Positive H (Negative) Lyme Tier 2 IgG Confirm Positive H (Negative) Lyme Tier 2 IgM Confirm Positive H (Negative) Administered Medications Discontinued Medications Atorvastatin Calcium (Atorvastatin 40 Mg Tab) 40 mg PO DAILY AMGGI Stop: 01/20/25 08:59 Last Admin: 12/21/24 08:59 Dose: Not Given Documented By: ZEENAT Diphenhydramine HCl (Diphenhydramine Capsule 25 Mg Cap) 25 mg PO NOW ONE Stop: 12/21/24 09:06 Last Admin: 12/21/24 09:19 Dose: 25 mg Documented By: ZEENAT Doxycycline Hyclate (Doxycycline Hyclate 100 Mg Cap) 100 mg PO NOW STA Stop: 12/21/24 17:38 Last Admin: 12/21/24 18:38 Dose: 100 mg Documented By: GILBERT Promethazine HCl (Phenergan) 12.5 mg in 50.5 mls @ 202 mls/hr IV NOW STA Stop: 12/21/24 12:59 Last Infusion: 12/21/24 13:25 Dose: Infused Documented By: Admin: 12/21/24 13:10 Dose: 202 mls/hr Documented By: ZEENAT Ioversol (Optiray 320 125ml) 125 ml IV ONCE ONE Stop: 12/21/24 05:40 Last Admin: 12/21/24 05:40 Dose: 118 ml Documented By: CLEVELAND Venlafaxine HCl (Venlafaxine Hcl Xr 150 Mg Capxr) 150 mg PO DAILY MAGGI Stop: 01/20/25 08:59 Last Admin: 12/21/24 08:59 Dose: Not Given Documented By: ZEENAT Discharge Plan Visit Data Chief Complaint: Head Pain Stated Complaint: HEAD FEEL FUNKY ED Provider: Beto Leung Discharge Problem: Left facial numbness, Weakness on left side of face Patient Disposition: Admitted As Inpatient Condition: Fair Discharge Instructions Interventions: ED Discharge Assessment Last Done: 12/21/24 08:17
[2024-12-21] MEDS: OPTIRAY 320 125ml IV ONE (05:40)
[2024-12-21 05:56] LABS: Hematocrit (blood only) 41.6 % (37.0-47.0); Hemoglobin 14.0 g/dl (12.0-16.0); Immature Granulocytes # (auto) 0.02 K/uL (0.01-0.20); Immature Granulocytes % (auto) 0.2 %; Mean Corpuscular Hemoglobin 30.0 pg (25.0-34.0); Mean Corpuscular Volume 89.1 fL (80.0-100.0); Platelet Count 200 K/uL (130-400); RDW Standard Deviation 42.2 fL (36.4-46.3); Red Blood Count 4.67 M/uL (4.20-5.40); White Blood Count 9.53 K/ul (4.8-10.8)
--- NOTE | 2024-12-21 06:06 | CT Scan Report ---
EXAM: CT head/brain wo con CLINICAL HISTORY: neuro deficit, acute stroke suspected TECHNIQUE: Multiple axial images are obtained from the skull base to the vertex without contrast. CT scan was performed according to ALARA (as low as reasonable achievable). 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 FINDINGS: The brain shows normal morphology, attenuation, and volume for age. No evidence of space occupying lesion, hemorrhage, edema, mass effect, midline shift, extra axial collection, or hydrocephalus is noted. Ventricles, sulci, and basal cisterns are symmetric and normal in size and configuration. The montiel-white matter differentiation is preserved. Visualized paranasal sinuses and mastoid air cells are well aerated. Orbital contents are within normal limits. Bony structures are intact. Multiple scalp nodule with calcifications are noted in bilateral fronto-parietal region mesh appears benign - stable. IMPRESSION: 1. No evidence of acute intracranial abnormality is demonstrated No other new interval abnormality since prior study. CT scan is negative for large territorial ischemic / hemorrhagic stroke. Non contrast CT can be negative in the setting of hyperacute infarct/small ischemic infarct and further evaluation with diffusion weighted MRI is recommended as clinically appropriate. Electronically signed by Renzo Paige 12-21-2024 06:06 AM
--- NOTE | 2024-12-21 06:08 | CT Scan Report ---
EXAM: CT angio neck with con CLINICAL HISTORY: neuro deficit, acute stroke suspected TECHNIQUE: Contrast enhanced thin slice CT angiography scan of the carotid vessels was performed with intravenous contrast. Angiographic images were processed, 3D MIP images were acquired for interpretation.Contiguous axial images were obtained. Reformatted coronal and sagittal images were also reviewed. If IV contrast material had not been administered, the likelihood of detecting abnormalities relevant to the patients condition would have been substantially decreased. CT scan was performed according to ALARA (as low as reasonable achievable). COMPARISON: None. FINDINGS: Included great vessels of the aortic arch are grossly unremarkable. Common carotid artery, carotid Bulb, internal carotid artery , and origin of the external carotid artery are well opacified. Vertebral arteries are well opacified. Jugular veins are well opacified. Included lung apices are grossly unremarkable. Thyroid gland appears unremarkable. IMPRESSION: No evidence of stenosis or aneurysm. No evidence of dissection. Electronically signed by Renzo Paige 12-21-2024 06:08 AM
--- NOTE | 2024-12-21 06:11 | CT Scan Report ---
EXAM: CT angio head w con CLINICAL HISTORY: neuro deficit, acute stroke suspected TECHNIQUE: Contrast enhanced thin slice CT angiography scan of the cerebral vessels was performed with intravenous contrast. Angiographic images were processed, 3D MIP images were acquired for interpretation. Contiguous axial images were obtained. Reformatted coronal and sagittal images were also reviewed. If IV contrast material had not been administered, the likelihood of detecting abnormalities relevant to the patients condition would have been substantially decreased. CT scan was performed according to ALARA (as low as reasonable achievable). COMPARISON: none. FINDINGS: Bilateral internal carotid arteries show normal course, calibre and opacification in the canalicular and cavernous part. Their division into the anterior cerebral artery and middle cerebral artery is defined. A1, A2 and M1, M2 segments are normal on both the sides. Bilateral vertebral arteries are seen to unite the form the basilar artery in a normal fashion. Basilar artery shows normal course, caliber and opacification. Its division into the posterior cerebral arteries is defined. Bilateral P1 and P2 segments are normal. Visualized venous structures show normal opacification. No evidence of intracranial aneurysm or AV malformation is seen. IMPRESSION: No evidence of stenosis or aneurysm. No evidence of dissection. Electronically signed by Renzo Paige 12-21-2024 06:09 AM
[2024-12-21 06:14] LABS: Alanine Aminotransferase 22.0 U/L (7-52); Albumin Globulin Ratio 1.4 (0.9-2); Alkaline Phosphatase 61.0 U/L (34-104); Anion Gap 4.0 (3-11); Bilirubin,Total 0.4 mg/dl (0.2-1.0); Blood Urea Nitrogen 21.0 mg/dl (6-23); Calcium 9.3 mg/dl (8.6-10.3); Carbon Dioxide 27.0 mmol/L (21-32); Chloride 105.0 mmol/L (98-107); Creatinine Clr Calc Pharmacy 112.1 ml/min; Globulin 2.7 gm/dl (2.5-4.0); Glucose 126.0 mg/dl (70-99(Fasting)); Magnesium 1.8 mg/dl (1.7-2.4); Potassium 3.7 mmol/L (3.5-5.1); Sodium 136.0 mmol/L (136-145); Total Protein 6.4 gm/dl (6.0-8.3)
[2024-12-21 06:26] LABS: INR 1.0 (0.9-1.1); Partial Thromboplastin Time 28 Seconds (21-31); Prothrombin Time 11.1 Seconds (9.0-12.0)
--- NOTE | 2024-12-21 07:32 | History & Physical Report ---
Date of Service December 21, 2024 Assessment & Plan (1) Left facial numbness: Plan 54 yo female with pmhx of HLD, CAD, GERD, RLS, depression, YVONNE, tobacco use who presents for facial paresthesia likely 2/2 neck spasm, incidentally has lyme disease. #Neck Spasm -stroke workup called, MR head ordered and negative for infarct -CT imaging unremarkable Plan: -neurology consulted, appreciate recs -feel it is unrelated to active lyme infection and is not stroke -patient improved -check electrolytes -PT/OT stroke workup ordered, however MR head negative #Acute Lyme Disease -positive IgM titer for lyme disease Plan: -10 days of doxycycline ordered #HLD -continue statin #GERD -continue protonix #Tobacco Use -counseled on cessation I spent a total of 80 minutes in direct patient care, including [id number] time with the patient and/or family, reviewing medical records, ordering and reviewing diagnostic tests, and coordinating care with other healthcare providers. This time includes: history taking, physical examination, medical decision making, counseling, ECG interpretation, imaging interpretation, lab interpretation, orders, and education, excluding time spent in the performance of separately billed services. History of Present Illness Chief Complaint: -facial paresthesia Primary Care Provider: Jorge Freeman DO 54 yo female with pmhx of HLD, CAD, GERD, RLS, depression, YVONNE, tobacco use who presents for facial paresthesia. Admitted in 2020 for abnormal uterine bleeding. In the ED, given CT head and neck without findings, teleneuro recommended MR brain, admitted to medicine. Patient seen and examined at bedside. Children present as well. Patient doing ok today. Last known normal 10 pm last night. Woke up at 3am with facial numbness and speech slurring. New for her. No history of migraines in past. Came to ED cause thought she was having stroke. No weakness on either side, no word finding difficulties. No other symptoms, no nausea, vomiting, diarrhea, chest pain, SOB. Some itching and headache. States neck is stiff. Current tobacco use, no alcohol use, no drug use. Allergies Allergy/AdvReac Type Severity Reaction Status Date / Time hydrocodone AdvReac Severe NAUSEA & Verified 09/28/24 22:54 VOMITING Home Medications Medication Instructions Recorded Confirmed Type omeprazole 20 mg capsule,delayed 20 mg PO DAILYBB 05/22/19 12/21/24 History release atorvastatin 40 mg tablet 40 mg PO DAILY 09/28/24 12/21/24 History celecoxib 200 mg capsule 400 mg PO DAILY 09/28/24 12/21/24 History cetirizine 10 mg tablet (Zyrtec) 10 mg PO DAILY 09/28/24 12/21/24 History oxybutynin chloride 5 mg 0 mg PO HS 09/28/24 12/21/24 History tablet,extended release 24 hr venlafaxine 150 mg 150 mg PO DAILY 09/28/24 12/21/24 History capsule,extended release 24 hr doxycycline hyclate 100 mg tablet 100 mg PO BID 10 days #20 tabs 12/21/24 Rx ondansetron 4 mg disintegrating 4 mg PO Q8H 24 hours #3 tabs 12/21/24 Rx tablet Past Med/Surg History Problem List Left facial numbness Abnormal uterine bleeding Encounter for pre-operative examination History of tubal ligation Medical History Abnormal uterine bleeding GERD (gastroesophageal reflux disease) Well controlled and stable with meds Hx of cardiac murmur Childhood- has since resolved Hyperlipidemia Osteoarthritis back, knees Restless leg syndrome Mildly controlled with meds Surgical History Hx of dilation and curettage D&E (FOR MISCARRIAGE) S/P tubal ligation Varicose veins of both lower extremities SURGERY X 2 Family History Other No significant family history Social History Smoking Status: Current every day smoker Tobacco Type: Cigarettes Cigarettes Per Day: 1PPD; Second Hand Exposure: No; Do You Dip or Chew Tobacco: No; Hx Alcohol Use: Yes Hx Substance Use: No Preferred Language: Mongolian Communication Ability: Effective Visual Impairment: Partially Limited Hearing Ability: Normal Db2 Developer Required: No Beliefs That Will Affect Care: None Current Living Situation: Significant Other Feels Safe at Home: Yes Assistive Devices: Glasses Review of Systems Review of Systems: -negative unless listed above Physical Exam Physical Exam: Gen: A&O 3 NAD HEENT: NCAT, EOMI, not icteric. External ears normal. No rhinorrhea. Moist mucous membranes. Neck: Supple, full range of motion, no observable masses, No meningeal sign. Lungs: No Respiratory distress. CV: RRR, no edema. Abdomen: Soft, nondistended, No rebound tenderness. MSK: No joint swelling, no redness. Skin: No rashes, petechiae, lesions. Normal color per patient. Neuro: Normal Gait, Grossly intact other than left facial numbness in V2/V3 distribution, mild speech slurring, mild left facial droop Psych: Appropriate for situation. Results & Data Results & Data Vital Signs (Past 12 Hours) Vital Signs Temp Pulse Pulse Resp BP BP Pulse Ox 12/21/24 06:51 70 16 147/90 H 97 12/21/24 06:36 68 16 148/76 H 97 12/21/24 06:30 67 16 148/76 H 97 12/21/24 06:21 68 16 153/97 H 97 12/21/24 06:06 68 16 149/104 H 96 12/21/24 05:51 68 16 168/90 H 98 12/21/24 05:49 73 16 181/70 H 96 12/21/24 05:47 74 16 181/70 H 96 12/21/24 05:41 81 12/21/24 05:07 36.2 C L 88 16 159/93 H 97 O2 Del Method 12/21/24 06:51 Room Air 12/21/24 06:36 Room Air 12/21/24 06:30 Room Air 12/21/24 06:21 Room Air 12/21/24 06:06 Room Air 12/21/24 05:51 Room Air 12/21/24 05:49 Room Air 12/21/24 05:47 Room Air 12/21/24 05:41 12/21/24 05:07 Room Air Laboratory Results -personally reviewed, no leukocytosis, Hgb at baseline, creatinine at baseline, positive lyme titers Medications Administered Atorvastatin Calcium (Atorvastatin 40 Mg Tab) 40 mg PO DAILY MAGGI Stop: 01/20/25 08:59 Last Admin: 12/21/24 08:59 Dose: Not Given Documented By: ZEENAT Venlafaxine HCl (Venlafaxine Hcl Xr 150 Mg Capxr) 150 mg PO DAILY MAGGI Stop: 01/20/25 08:59 Last Admin: 12/21/24 08:59 Dose: Not Given Documented By: ZEENAT
[2024-12-21 08:15] LABS: Cholesterol 112.0 mg/dl (0-200); HDL Cholesterol 30.0 mg/dl; Hemoglobin A1C 6.3 % (4.5-5.6); Triglycerides 185.0 mg/dl (0-150)
[2024-12-21] MEDS ORDERED: ACETAMINOPHEN 325 MG TAB PO PRN (08:17)
[2024-12-21] MEDS ORDERED: ONDANSETRON INJ 2 MG/ML 2 ML VIAL IV PRN (08:17)
[2024-12-21] MEDS ORDERED: PHARMACIST DISCHARGE MED REC CONSULT PRN (08:17)
[2024-12-21] MEDS ORDERED: POLYETHYLENE (MIRALAX) 17 GM PACK PO PRN (08:17)
[2024-12-21 08:31] LABS: Thyroid Stimulating Hormone 2.075 uIu/ml (0.300-4.500)
[2024-12-21 08:55] LABS: Lyme Screen Rflx Confirmation Positive (Negative)
[2024-12-21] MEDS: ATORVASTATIN 40 MG TAB PO SCH (08:59)
[2024-12-21] MEDS: VENLAFAXINE HCL XR 150 MG CAPXR PO SCH (08:59)
[2024-12-21] MEDS: diphenhydrAMINE Capsule 25 MG CAP PO ONE (09:19)
[2024-12-21 09:49] LABS: Lyme Ab IgG 2nd Tier Confirm Positive (Negative); Lyme Ab IgM 2nd Tier Confirm Positive (Negative)
--- NOTE | 2024-12-21 10:02 | Magnetic Resonance Report ---
MRI OF THE BRAIN WITHOUT IV CONTRAST CLINICAL HISTORY: Left facial tingling. Left facial droop. COMPARISON STUDY: Head CT and CTA of the head December 21, 2024. TECHNIQUE: MRI of the brain was performed utilizing various T1 and T2-weighted sequences in the axial , sagittal, and coronal planes. IV contrast was not administered for this examination. FINDINGS: Brain parenchyma: There are no foci of restricted diffusion to suggest acute infarct. No acute intrac ranial hemorrhage, midline shift or mass effect is present. No intracranial masses are identified on unenhanced exam. There is no significant parenchymal signal abnormality. Ventricles, sulci, and cisterns: There is no hydrocephalus. The basal cisterns are patent. There are no extra-axial collections. Pituitary and sella: Unremarkable. Intracranial vasculature: Flow-voids for the major intracranial vessels are present. Orbits: Orbital contents are unremarkable. Sinuses and mastoids: Clear. Calvarium/scalp: No calvarial lesions are identified. Several scalp sebaceous cysts are incidentally noted. Cervical cord: Partially visualized cervical spinal cord is normal in morphology and signal intensity . IMPRESSION: No acute intracranial findings. Unremarkable unenhanced MRI of the brain. ACT 112: Negative or not required by law. Electronically signed by: Gonzalo Xavier M.D. 12/21/2024 10:00 AM
[2024-12-21] MEDS: PROMETHAZINE 12.5 MG/50.5 ML BAG IV STA (13:10)
--- NOTE | 2024-12-21 17:18 | Neurology Consultation ---
Date of Consultation December 21, 2024 Assessment & Plan (1) Left facial numbness: Left facial numbness involving the back of the head and neck and the lateral side of the neck, likely related to neck spasm, abnormal positioning. Less likely related to a stroke or cranial neuropathy especially that her symptoms have resolved now. MRI of the brain showed no acute ischemic infarcts. Vessel imaging does not show evidence of significant atherosclerotic disease. 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 Can treat Disease accordingly. No symptoms or signs to suggest TECH [employer] TEACHER Lyme. Patient can come to the emergency room if further symptoms arise Telehealth Consultation Telehealth Information Telehealth Information: I performed this visit using a real-time telehealth connection between my location and the patients location ([facility]). After connecting through interactive tele-video, patient was identified by name and date of and/or wristband check.Patient (or authorized healthcare healthcare representative) was informed that this was a telemedicine visit and it was being conducted confidentially over secure lines. My office door was closed and no one else was present in the room with me.Patient (or authorized healthcare healthcare representative) provided consent to proceed with the visit, expressed an understanding of privacy and security of the telemedicine visit, and gave permission to have a hospital healthcare representative in the room in order to assist with the visit and to conduct portions of the visit, as needed. I informed the patient (or authorized healthcare healthcare representative) that I reviewed their record and presented the opportunity for them to ask any questions regarding the visit today. The patient agreed to participate. History of Present Illness Reason for Consultation: Left facial numbness Requesting Physician: Onesimo Christiansen MD Attending Physician: Onesimo Christiansen MD History of Present Illness 54-year-old female patient who is hearing impaired, PMH of depression . Who presented first to In the morning radiating down to her neck associated with some neck spasm. She reports feeling something electrical on the back of her head, reported numbness and tingling affecting the left side of the face, denies any associated slurred speech visual changes weakness or numbness or difficulty with balance. She reports intermittent dizziness associated with the symptoms. Her symptoms have completely resolved she currently has no focal neurological deficits and no new deficits, she denies any facial weakness or difficulty with swallowing or speech. Denies any recent illnesses or recent stressors. Allergies Allergy/AdvReac Type Severity Reaction Status Date / Time hydrocodone AdvReac Severe NAUSEA & Verified 09/28/24 22:54 VOMITING Home Medications Medication Instructions Recorded Confirmed Type omeprazole 20 mg capsule,delayed 20 mg PO DAILYBB 05/22/19 12/21/24 History release atorvastatin 40 mg tablet 40 mg PO DAILY 09/28/24 12/21/24 History celecoxib 200 mg capsule 400 mg PO DAILY 09/28/24 12/21/24 History cetirizine 10 mg tablet (Zyrtec) 10 mg PO DAILY 09/28/24 12/21/24 History oxybutynin chloride 5 mg 0 mg PO HS 09/28/24 12/21/24 History tablet,extended release 24 hr venlafaxine 150 mg 150 mg PO DAILY 09/28/24 12/21/24 History capsule,extended release 24 hr Patient History Medical History Abnormal uterine bleeding GERD (gastroesophageal reflux disease) Well controlled and stable with meds Hx of cardiac murmur Childhood- has since resolved Hyperlipidemia Osteoarthritis back, knees Restless leg syndrome Mildly controlled with meds Surgical History Hx of dilation and curettage D&E (FOR MISCARRIAGE) S/P tubal ligation Varicose veins of both lower extremities SURGERY X 2 Family History Other No significant family history Social History Smoking Status: Current every day smoker Tobacco Type: Cigarettes Cigarettes Per Day: 1PPD; Second Hand Exposure: No; Do You Dip or Chew Tobacco: No; Hx Alcohol Use: Yes Hx Substance Use: No Preferred Language: Kazakh Communication Ability: Effective Visual Impairment: Partially Limited Hearing Ability: Normal [employer] Required: No Beliefs That Will Affect Care: None Current Living Situation: Significant Other Feels Safe at Home: Yes Assistive Devices: Glasses Review of Systems Constitutional: Patient denies weight loss, fever, chills, and night sweats Eyes: Patient denies change in vision, tearing, pain, and redness ENT: Patient denies pain, bleeding, rhinorrhea, and dysphagia Cardiovascular: Patient denies chest pain, palpitation, dyspnea at rest, and dyspnea with exertion Respiratory: Patient denies shortness of breath, cough, wheezing, and productive cough GI: Patient denies reflux, pain, constipation, and diarrhea Skin: Patient denies rash, dryness, and itching Allergies/Immune System: Patient denies rhinorrhea, seasonal allergies, reaction to current MEDS, and joint swelling Endocrine: Patient denies weight loss, weight gain, temperature intolerance, and excessive thirst Neurological: All negative unless mentioned in the HPI Physical Exam General Constitutional: Appearance normally developed Head and face: normocephalic and atraumatic Eyes: no ptosis, no anisocoria, and no dysconjugate gaze Respiratory: normal effort Cardiovascular: regular rhythm and regular rate Abdomen: non distended Skin: no rashes, lesions, or ulcers noted Psychiatric: normal judgement and insight, normal mood, and normal affect NEUROLOGIC EXAMINATION: Mental Status:alert, oriented to time, place, person, normal recent memory, normal remote memory, normal attention span, normal concentration, normal l anguage and normal fund of knowledge Cranial Nerves: CN 2 - no visual defect on confrontation and pupils round, equal, reactive to light CN 3, 4, 6 - extra-ocular movements intact and no nystagmus CN 5 - facial sensation intact CN 7 - no facial asymmetry CN 8 - intact hearing CN 9, 10 - palate symmetric, normal gag CN 11 - good shoulder shrug CN 12 - tongue midline MOTOR: Strength was at least antigravity throughout, Pronator drift was absent and There were no abnormal movements SENSATION: intact and symmetric to pinprick, light touch, vibration and joint position GAIT: stable, no ataxia and can perform tandem walking COORDINATION: no ataxia with finger to nose testing and heel to aparicio testing REFLEXES: cannot assess over telemedicine NIH Stroke Scale: 1a. Level of Consciousness: alert = 0 1b. LOC Questions: (month, age): both correct = 0 1c. LOC Commands (open and close eyes, make fist and let go using non-paretic hand): obeys both correctly = 0 2. Best Gaze (eyes open and patient follows examiner's finger or face): normal = 0 3. Visual (visual threat or finger counting in each quadrant): no loss = 0 4. Facial Palsy (show teeth, raise eye brows and squeeze eyes shut, or grimace symmetry in a comatose patient): normal = 0 5a. Motor Arm (extend arm (palms down) to 90 degrees and score drift/movement (10 seconds) - Left: no drift = 0 5b. Motor Arm: (extend arm (palms down) to 90 degrees and score drift/movement (10 seconds) - Right: no drift = 0 6a. Motor Leg (elevate leg 30 degrees and score drift/ movement (5 seconds) - Left: no drift = 0 6b. Motor Leg (elevate leg 30 degrees and score drift/ movement (5 seconds) - Right: no drift = 0 7. Limb Ataxia (finger to nose, heel down aparicio): absent = 0 8. Sensory (pin prick to face, arm, trunk and leg, compare side to side): normal = 0 9. Best Language: no aphasia = 0 10. Dysarthria (evaluate speech clarity by patient repeating listed words): normal articulation = 0 11. Extinction and Inattention: no neglect = 0 Total: 0 Results & Data Vital Signs (Past 12 Hours) Vital Signs Temp Pulse Pulse Resp BP Pulse Ox O2 Del Method 12/21/24 12:41 36.8 C 67 18 139/92 98 Room Air 12/21/24 09:19 78 20 125/84 98 Room Air 12/21/24 06:51 70 16 147/90 H 97 Room Air 12/21/24 06:36 68 16 148/76 H 97 Room Air 12/21/24 06:30 67 16 148/76 H 97 Room Air 12/21/24 06:21 68 16 153/97 H 97 Room Air 12/21/24 06:06 68 16 149/104 H 96 Room Air 12/21/24 05:51 68 16 168/90 H 98 Room Air 12/21/24 05:49 73 16 181/70 H 96 Room Air 12/21/24 05:47 74 16 181/70 H 96 Room Air 12/21/24 05:41 81 Laboratory Results Laboratory Results - last 24 hr 12/21/24 12/21/24 05:30 05:41 WBC 9.53 RBC 4.67 Hgb 14.0 POC Hgb 15.6 Hct 41.6 POC Hct 46 MCV 89.1 MCH 30.0 MCHC 33.7 RDW Std Deviation 42.2 RDW Coeff of Jacobo 12.9 Plt Count 200 MPV 10.9 Immature Gran % (Auto) 0.2 Neut % (Auto) 53.2 Lymph % (Auto) 34.5 [place] % (Auto) 8.1 Eos % (Auto) 3.3 Baso % (Auto) 0.7 Neut # (Auto) 5.07 Lymph # (Auto) 3.29 [place] # (Auto) 0.77 H Eos # (Auto) 0.31 Baso # (Auto) 0.07 Immature Gran # (Auto) 0.02 PT 11.1 INR 1.0 APTT 28 PTT Ratio 1.0 POC Sodium 139 Sodium 136 POC Potassium 4.8 Potassium 3.7 POC Chloride 105 Chloride 105 Carbon Dioxide 27 POC Total CO2 26 Anion Gap 4 POC Anion Gap 14.0 L POC BUN 28 H BUN 21 Creatinine 0.70 POC Creatinine 0.7 Est Cr Clr Drug Dosing 112.1 eGFR 102.71 BUN/Creatinine Ratio 30.0 H Glucose 126 H POC Glucose (other) 123 H Estimat Average Glucose 134 Hemoglobin A1c 6.3 H Calcium 9.3 POC Ioniz Calcium Samantha 1.20 Phosphorus 2.8 Magnesium 1.8 Total Bilirubin 0.4 AST 18 ALT 22 Alkaline Phosphatase 61 Troponin I High Sens 7.0 Total Protein 6.4 Albumin 3.7 Globulin 2.7 Albumin/Globulin Ratio 1.4 Triglycerides 185 H Cholesterol 112 LDL Cholesterol, Calc 45 VLDL Cholesterol, Calc 37 H HDL Cholesterol 30 Cholesterol/HDL Ratio 3.7 TSH 2.075 Lyme Disease Screen Positive H Lyme Tier 2 IgG Confirm Positive H Lyme Tier 2 IgM Confirm Positive H Diagnostic Findings CT scan of the head shows no acute ischemic changes. CTA shows no significant atherosclerotic disease or stenosis. MRI of the brain shows no acute or chronic white matter changes. EKG shows normal sinus rhythm. Medications Administered Home Medications Medication Instructions Recorded Confirmed Last Taken omeprazole 20 mg capsule,delayed 20 mg PO DAILYBB 05/22/19 12/21/24 06/15/19 05:00 release atorvastatin 40 mg tablet 40 mg PO DAILY 09/28/24 12/21/24 Unknown celecoxib 200 mg capsule 400 mg PO DAILY 09/28/24 12/21/24 Unknown cetirizine 10 mg tablet (Zyrtec) 10 mg PO DAILY 09/28/24 12/21/24 Unknown oxybutynin chloride 5 mg 0 mg PO HS 09/28/24 12/21/24 Unknown tablet,extended release 24 hr venlafaxine 150 mg 150 mg PO DAILY 06/06/25 08/29/25 Unknown capsule,extended release 24 hr Active Medications Generic Name Dose Route Start Last Admin Trade Name Freq PRN Reason Stop Dose Admin Atorvastatin Calcium 40 mg 12/21/24 09:00 12/21/24 08:59 Atorvastatin 40 Mg Tab PO 01/20/25 08:59 Not Given DAILY MAGGI Venlafaxine HCl 150 mg 12/21/24 09:00 12/21/24 08:59 Venlafaxine Hcl Xr 150 Mg Capxr PO 01/20/25 08:59 Not Given DAILY MAGGI
[2024-12-21] MEDS ORDERED: STROKE PATIENT DISCHARGE STA (17:31)
--- NOTE | 2024-12-21 17:42 | Discharge Summary ---
Discharge Summary Date of Service December 21, 2024 Principal Dx & Hospital Course #1 = Principal Diagnosis (1) Left facial numbness: Plan 54 yo female with pmhx of HLD, CAD, GERD, RLS, depression, YVONNE, tobacco use who presents for facial paresthesia likely 2/2 neck spasm, incidentally has lyme disease. #Neck Spasm -stroke workup called, MR head ordered and negative for infarct -CT imaging unremarkable Plan: -neurology consulted, appreciate recs -feel it is unrelated to active lyme infection and is not stroke -patient improved -check electrolytes -PT/OT stroke workup ordered, however MR head negative #Acute Lyme Disease -positive IgM titer for lyme disease Plan: -10 days of doxycycline ordered #HLD -continue statin #GERD -continue protonix #Tobacco Use -counseled on cessation I spent a total of 80 minutes in direct patient care, including [id number] time with the patient and/or family, reviewing medical records, ordering and reviewing diagnostic tests, and coordinating care with other healthcare providers. This time includes: history taking, physical examination, medical decision making, counseling, ECG interpretation, imaging interpretation, lab interpretation, orders, and education, excluding time spent in the performance of separately billed services. Notes For Next Care Provider 54 yo female with pmhx of HLD, CAD, GERD, RLS, depression, YVONNE, tobacco use who presents for facial paresthesia. Code stroke called in ED, admitted to medicine. On medicine, MR unremarkable for infarct. Neurology consulted, feel 2/2 neck spasm. Symptoms improved. Lyme titers IgM positive, started on doxycycline. On 12/21/2024 patient medically stable for discharge home. To do: [ ] f/u with neurology [ ] finish course of doxy for lyme disease Medication Changes From Visit -doxycycline, zofran Admission HPI Per Admitting Provider 54 yo female with pmhx of HLD, CAD, GERD, RLS, depression, YVONNE, tobacco use who presents for facial paresthesia. Admitted in 2019 for abnormal uterine bleeding. In the ED, given CT head and neck without findings, teleneuro recommended MR brain, admitted to medicine. Patient seen and examined at bedside. Children present as well. Patient doing ok today. Last known normal 10 pm last night. Woke up at 3am with facial numbness and speech slurring. New for her. No history of migraines in past. Came to ED cause thought she was having stroke. No weakness on either side, no word finding difficulties. No other symptoms, no nausea, vomiting, diarrhea, chest pain, SOB. Some itching and headache. States neck is stiff. Current tobacco use, no alcohol use, no drug use. Discharge Exam Gen: A&O 3 NAD HEENT: NCAT, EOMI, not icteric. External ears normal. No rhinorrhea. Moist mucous membranes. Neck: Supple, full range of motion, no observable masses, No meningeal sign. Lungs: No Respiratory distress. CV: RRR, no edema. Abdomen: Soft, nondistended, No rebound tenderness. MSK: No joint swelling, no redness. Skin: No rashes, petechiae, lesions. Normal color per patient. Neuro: Normal Gait, Grossly intact other than left facial numbness in V2/V3 distribution, mild speech slurring, mild left facial droop Psych: Appropriate for situation. Updated Medication List Medication Instructions Recorded Confirmed Type omeprazole 20 mg capsule,delayed 20 mg PO DAILYBB 05/22/19 12/21/24 History release atorvastatin 40 mg tablet 40 mg PO DAILY 09/28/24 12/21/24 History celecoxib 200 mg capsule 400 mg PO DAILY 09/28/24 12/21/24 History cetirizine 10 mg tablet (Zyrtec) 10 mg PO DAILY 09/28/24 12/21/24 History oxybutynin chloride 5 mg 0 mg PO HS 09/28/24 12/21/24 History tablet,extended release 24 hr venlafaxine 150 mg 150 mg PO DAILY 09/28/24 12/21/24 History capsule,extended release 24 hr doxycycline hyclate 100 mg tablet 100 mg PO BID 10 days #20 tabs 12/21/24 Rx ondansetron 4 mg disintegrating 4 mg PO Q8H 24 hours #3 tabs 12/21/24 Rx tablet Hospital Stay Data Consultations 12/21/24 07:34 Consult Neurology Routine Diagnostic Imagining Performed 12/21/24 05:21 CT angio head w con Stat CT angio neck with con Stat CT head/brain wo con Stat 12/21/24 08:17 MR brain wo con Routine Pending Results Patient Have Any Pending Studies at Discharge: No Discharge Instructions Given to Patient (Per Discharging Provider) Diagnosis: neck spasm, lyme disease Follow Ups: PCP, neurology Incidentals: sebaceous cysts in scalp 1. Please follow up with PCP and neurology. 2. Stay hydrated! 3. Finish course of abx. Total Time Total Time Spent Total Time Spent (In Minutes): I spent a total of 35 minutes in direct patient care, including [id number] time with the patient and/or family, reviewing medical records, ordering and reviewing diagnostic tests, and coordinating care with other healthcare providers. This time includes: history taking, physical examination, medical decision making, counseling, ECG interpretation, imaging interpretation, lab interpretation, orders, and education, excluding time spent in the performance of separately billed services.
[2024-12-21 18:27] VITALS: TEMP 98.1
[2024-12-21] MEDS: DOXYCYCLINE HYCLATE 100 MG CAP PO STA (18:38)
[2024-12-21 19:10] VITALS: BP 132/79; PULSE 68; RESP 20; O2SAT 98
[2024-12-21] MEDS ORDERED: OXYBUTYNIN CHLORIDE XL 5 MG TABCR PO SCH (21:00)
--- NOTE | 2024-12-21 22:42 | Electrocardiogram Report ---
Test Reason : Blood Pressure : */* mmHG Vent. Rate : 71 BPM Atrial Rate : 71 BPM P-R Int : 146 ms QRS Dur : 80 ms QT Int : 430 ms P-R-T Axes : -19 -9 -13 degrees QTcB Int : 467 ms Poor data quality, interpretation may be adversely affected Normal sinus rhythm T wave abnormality, consider inferior ischemia When compared with ECG of 20-Aug-2022 12:26, Questionable change in QRS axis Inverted T waves have replaced nonspecific T wave abnormality in Inferior leads Confirmed by Duc Hernandez ([id number]) on 12/21/2024 10:41:23 PM Referred By: REFERRED SELF Confirmed By: Duc Hernandez
== END 2024-12-21 18:48 | disposition home or self-care (01) | DRG 92 ==
LOC: ED 05:06 → EDINP 07:30 → INTOOBSV 07:30 → EDINP 08:17